=== PATIENT | female | born 1955 | race Asian ===

== ENCOUNTER 2023-04-27 11:54 | Outpatient (CLI) | payer MEDICARE, BC | END 2023-04-27 11:55 | disposition home or self-care (01) | LOC: CSHMAMMO 11:54 | PROVIDERS: ATTEND Student in an Organized Health Care Education/Training Program | DX: Z13.820 Encounter for screening for osteoporosis (principal); M85.89 Other specified disorders of bone density and structure, multiple sites; Z78.0 Asymptomatic menopausal state | CPT/HCPCS: 77080 ==